=== PATIENT | female | born 1960 | race Caucasian/White ===

== ENCOUNTER 2019-05-27 10:16 | Outpatient (CLI) | payer OTHER ==
[2019-05-27 10:29] LABS: BASOPHILS % 0.4 % (0.0-1.5); NEUTROPHILS # 3.6 # k/uL (1.4-7.7)
[2019-05-27 11:07] LABS: HDL 61 mg/dL (>40); eGFR (Non-African) > 60
== END 2019-05-27 10:18 ==
LOC: LABRHC 10:16
PROVIDERS: ATTEND Family Medicine
DX: E78.5 Hyperlipidemia, unspecified (principal); R53.83 Other fatigue
CPT/HCPCS: 80053; 80061; 84439; 84443; 84481; 85025; 86803